=== PATIENT | male | born 1965 | race Caucasian/White ===

== ENCOUNTER 2021-04-20 16:21 | Inpatient (IN) | payer MEDICAID ==
[~2021-04-20] VITALS: Ht 162.6 cm; Wt 55.3 kg
[2021-04-20 18:53] LABS: CHLORIDE 109 mEq/L (98-107)
[2021-04-20 18:57] LABS: ETHANOL BLOOD < 10 mg/dL
[2021-04-20] MEDS ORDERED: POTASSIUM-SODIUM PHOSPHATE POWDER PACKET PO ONE (19:30)
[2021-04-20] MEDS ORDERED: POTASSIUM CHLORIDE INJ 40 MEQ in DEXT 5% WATER 250 ML IV ONE (19:30)
[2021-04-20 20:00] LABS: HEMATOCRIT. 22.6 % (42.0-52.0); HEMOGLOBIN. 7.6 g/dL (14.0-18.0); MEAN CORPUSCULAR HEMOGLOBIN 31.3 pg (28.0-32.0); MEAN CORPUSCULAR VOLUME 93.1 fL (80.0-94.0); MEAN PLATELET VOLUME 9.2 fl (7.4-10.4); RED BLOOD CELL COUNT 2.43 mill/uL (4.7-6.1); RED CELL DISTRIBUTION WIDTH 29.4 % (11.6-14.6)
[2021-04-20 20:28] LABS: PLATELET 30 x1000/uL (130-400)
[2021-04-20 21:27] LABS: NUCLEATED RED BLOOD CELLS 1 /100 WBC; PLATELET ESTIMATE MARKEDLY DECREASED
[2021-04-20] MEDS ORDERED: PANTOPRAZOLE SODIUM 40 MG/VIAL IV STA (21:45)
[2021-04-20] MEDS ORDERED: PANTOPRAZOLE 80 MG in SODIUM CHLORIDE 0.9% 100 ML IV STA (21:45)
[2021-04-20] MEDS ORDERED: LORAZEPAM 2MG/ML CPJ IV ONE (23:00)
[2021-04-20] MEDS ORDERED: DIPHENHYDRAMINE 50MG/ML VIAL IV ONE (23:00)
[2021-04-20] MEDS ORDERED: HALOPERIDOL LACTATE 5MG/ML VIAL IM ONE (23:00)
[2021-04-21 05:08] LABS: PARTIAL THROMBOPLASTIN TIME 30.4 sec (23.4-31.0); PROTHROMBIN TIME 10.9 sec (9.6-11.0)
[2021-04-21] MEDS ORDERED: ONDANSETRON HCL 4MG/2ML INJ IV PRN (11:30)
[2021-04-21 13:00] VITALS: BP 138/78
[2021-04-21] MEDS ORDERED: PANTOPRAZOLE 40MG DR TABLET PO NR (13:45)
[2021-04-21] MEDS: DEXT 5%/0.9% NACL 1,000 ML IV SCH (14:08)
[2021-04-21 16:00] VITALS: BP 139/95
[2021-04-21 16:37] LABS: CHLORIDE 111 mEq/L (98-107)
[2021-04-21 16:44] LABS: PHOSPHORUS 2.2 mg/dL (2.5-4.9)
[2021-04-21] MEDS ORDERED: POTASSIUM CHLORIDE 20MEQ TABLET SR PO NR (17:50)
[2021-04-21 20:00] VITALS: BP 143/85
[2021-04-21] MEDS ORDERED: POTASSIUM CHLORIDE 20MEQ TABLET SR PO SCH (22:00)
[2021-04-22] VITALS: BP 136/83
[2021-04-22] MEDS: DEXT 5%/0.9% NACL 1,000 ML IV SCH ×2 (01:12→13:28)
[2021-04-22] MEDS ORDERED: HYDROCODONE/ACETAMINOPHEN 5/325MG TABLET PO PRN (02:45)
[2021-04-22] MEDS ORDERED: NALOXONE HCL 0.4MG/ML VIAL IV PRN (03:00)
[2021-04-22 04:00] VITALS: BP 145/103
[2021-04-22] MEDS: PANTOPRAZOLE 40MG DR TABLET PO SCH (05:41)
[2021-04-22 08:00] VITALS: BP 135/87
[2021-04-22 08:43] LABS: HEMATOCRIT. 28.7 % (42.0-52.0); HEMOGLOBIN. 9.5 g/dL (14.0-18.0); MEAN CORPUSCULAR HEMOGLOBIN 30.7 pg (28.0-32.0); MEAN CORPUSCULAR VOLUME 93.1 fL (80.0-94.0); MEAN PLATELET VOLUME 10.5 fl (7.4-10.4); RED BLOOD CELL COUNT 3.08 mill/uL (4.7-6.1); RED CELL DISTRIBUTION WIDTH 29.3 % (11.6-14.6)
[2021-04-22] MEDS: ACETAMINOPHEN 325MG TABLET PO PRN ×2 (08:43→16:28)
[2021-04-22 08:49] LABS: CHLORIDE 107 mEq/L (98-107); PLATELET 17 x1000/uL (130-400)
[2021-04-22 08:56] LABS: LDL CHOLESTEROL 118 mg/dL (5-100)
[2021-04-22 08:57] LABS: HDL CHOLESTEROL 60 mg/dL (40-59)
[2021-04-22] MEDS ORDERED: POTASSIUM CHLORIDE 20MEQ TABLET SR PO NR (09:45)
[2021-04-22 11:22] LABS: PLATELET ESTIMATE MARKEDLY DECREASED
[2021-04-22 12:00] VITALS: BP 112/63
[2021-04-22 16:00] VITALS: BP 155/72
[2021-04-22] MEDS ORDERED: SODIUM CHLORIDE 0.9% 250 ML IV ONE (17:00)
[2021-04-22 20:00] VITALS: BP 97/52
[2021-04-22 21:46] LABS: HEPATITIS B SURFACE ANTIGEN NEGATIVE
[2021-04-23] VITALS (45 sets, daily range): BP systolic 60–145; BP diastolic 39–122
[2021-04-23] MEDS: CEFEPIME 1,000 MG in DEXTROSE 5% WATER 50 ML IV SCH ×4 (00:12→22:41)
[2021-04-23] MEDS: ACETAMINOPHEN 325MG TABLET PO PRN ×2 (00:16→16:09)
[2021-04-23] MEDS: DEXT 5%/0.9% NACL 1,000 ML IV SCH ×2 (03:30→16:12)
[2021-04-23] MEDS: PANTOPRAZOLE 40MG DR TABLET PO SCH (06:44)
[2021-04-23 08:45] LABS: *AMPHETAMINES SCREEN URINE NEGATIVE (NEGATIVE); *BARBITURATES SCREEN URINE NEGATIVE (NEGATIVE); *BENZODIAZEPINES SCREEN URINE NEGATIVE (NEGATIVE); *COCAINE SCREEN URINE NEGATIVE (NEGATIVE); METHADONE URINE SCREEN NEGATIVE (NEGATIVE); OPIATES URINE SCREEN NEGATIVE (NEGATIVE); PHENCYCLIDINE URINE SCREEN NEGATIVE (NEGATIVE)
[2021-04-23 08:47] LABS: CANNABINOID URINE SCREEN NEGATIVE (NEGATIVE)
[2021-04-23] MEDS ORDERED: METOPROLOL SUCCINATE 50MG ER TABLET PO SCH (09:00)
[2021-04-23 09:06] LABS: ABSOLUTE BASOPHILS 0.1 x10E3/uL (0.0-0.2); ABSOLUTE EOSINOPHILS 0.1 x10E3/uL (0.0-0.4); ABSOLUTE LYMPHOCYTES 0.7 x10E3/uL (0.7-3.1); ABSOLUTE MONOCYTES 0.4 x10E3/uL (0.1-0.9); ABSOLUTE NEUTROPHILS 0.9 x10E3/uL (1.4-7.0); BASOPHILS 3 % (Not Estab.); HEMATOLOGY COMMENT Note: (.); HEMOGLOBIN 9.4 g/dL (13.0-17.7); LYMPHOCYTES 31 % (Not Estab.); MEAN CORPUSCULAR HEMOGLOBIN 30.4 pg (26.6-33.0); MEAN CORPUSCULAR HGB CONC. 33.6 g/dL (31.5-35.7); MEAN CORPUSCULAR VOLUME 91 fL (79-97); MONOCYTES 18 % (Not Estab.); NEUTROPHILS 35 % (Not Estab.); NUCLEATED RBC 3 % (0 - 0); PLATELETS 13 x10E3/uL (150-450); RBC 3.09 x10E6/uL (4.14-5.80); WBC 2.4 x10E3/uL (3.4-10.8)
[2021-04-23] MEDS ORDERED: METOPROLOL TARTRATE 25MG TABLET PO SCH (09:30)
[2021-04-23 09:35] LABS: HEMATOCRIT. 24.9 % (42.0-52.0); HEMOGLOBIN. 8.4 g/dL (14.0-18.0); MEAN CORPUSCULAR HEMOGLOBIN 31.9 pg (28.0-32.0); MEAN CORPUSCULAR VOLUME 94.1 fL (80.0-94.0); RED BLOOD CELL COUNT 2.64 mill/uL (4.7-6.1); RED CELL DISTRIBUTION WIDTH 29.2 % (11.6-14.6)
[2021-04-23 10:08] LABS: % CD 3 POS. LYMPHOCYTES 66.1 % (57.5-86.2); % CD 4 POS. LYMPHOCYTES 2.8 % (30.8-58.5); ABSOLUTE CD 3 463 /uL (622-2402); ABSOLUTE CD 4 HELPER 20 /uL (359-1519); ABSOLUTE CD 8 SUPPRESSOR 434 /uL (109-897); CD4/CD8 RATIO 0.05 (0.92-3.72)
[2021-04-23 10:47] LABS: PLATELET 8 x1000/uL (130-400)
[2021-04-23] MEDS ORDERED: ACETAMINOPHEN 325MG TABLET PO SCH (11:00)
[2021-04-23 11:12] LABS: BG BASE EXCESS -6.4 mmol/L (-2.0-2.0); BG CARBOXYHEMOGLOBIN 0.3 % (0.5-1.5); BG DEOXYHEMOGLOBIN 10.4 % (0.0-5.0); BG HCO3 ACT 15.7 mmol/L (22.0-26.0); BG METHEMOGLOBIN 0.3 % (0.0-1.5); BG OXYGEN SATURATION 89.5 % (92.0-98.5); BG PCO2 20.5 mmHg (35.0-45.0); BG PH 7.501 (7.350-7.450); BG PO2 56.5 mmHg (75.0-100.0); BG SAMPLE SITE LEFT RADIAL; BG TOTAL HEMOGLOBIN 8.2 g/dL (12.0-18.0); BG VENT MODE ROOM AIR
[2021-04-23 11:21] LABS: PLATELET ESTIMATE MARKEDLY DECREASED
[2021-04-23] MEDS ORDERED: DIPHENHYDRAMINE 25MG CAPSULE PO SCH (12:00)
[2021-04-23] MEDS ORDERED: SODIUM CHLORIDE 0.9% 500 ML IV ONE (13:30)
[2021-04-23] MEDS ORDERED: NOREPINEPHRINE 8MG/250ML PMX 250 ML IV SCH (13:45)
[2021-04-23] MEDS ORDERED: DOPAMINE 400MG/250ML PREMIX 250 ML IV PRN (15:15)
[2021-04-23] MEDS ORDERED: IPRATROPIUM/ALBUTEROL 0.5-3(2.5)MG/3ML NEB HHN PRN (18:00)
[2021-04-23] MEDS ORDERED: IPRATROPIUM/ALBUTEROL 0.5-3(2.5)MG/3ML NEB HHN SCH (18:00)
[2021-04-23] MEDS: PHENYLEPHRINE 100 MG in DEXT 5% WATER 240 ML IV PRN (18:50)
[2021-04-23] MEDS: NOREPINEPHRINE 8 MG in DEXTROSE 5% WATER 250 ML IV PRN (22:41)
[2021-04-24] VITALS (97 sets, daily range): BP systolic 65–186; BP diastolic 31–94
[2021-04-24] MEDS: AZITHROMYCIN 500 MG in DEXT 5% WATER 250 ML IV SCH ×2 (00:50→23:54)
[2021-04-24] MEDS ORDERED: VANCOMYCIN 1 G PREMIX 200 ML IV SCH (01:00)
[2021-04-24] MEDS: PHENYLEPHRINE 100 MG in DEXT 5% WATER 240 ML IV PRN ×2 (05:19→15:59)
[2021-04-24] MEDS: DEXT 5%/0.9% NACL 1,000 ML IV SCH ×2 (05:20→13:49)
[2021-04-24 06:05] LABS: HEMATOCRIT. 23.6 % (42.0-52.0); HEMOGLOBIN. 7.9 g/dL (14.0-18.0); MEAN CORPUSCULAR HEMOGLOBIN 31.2 pg (28.0-32.0); MEAN CORPUSCULAR VOLUME 93.6 fL (80.0-94.0); MEAN PLATELET VOLUME 11.2 fl (7.4-10.4); RED BLOOD CELL COUNT 2.52 mill/uL (4.7-6.1)
[2021-04-24] MEDS: CEFEPIME 1,000 MG in DEXTROSE 5% WATER 50 ML IV SCH ×3 (06:42→22:04)
[2021-04-24] MEDS: ATOVAQUONE 750MG/5ML ORAL SYRINGE PO SCH ×2 (06:42→16:00)
[2021-04-24] MEDS: PANTOPRAZOLE 40MG DR TABLET PO SCH (06:42)
[2021-04-24 08:04] LABS: PLATELET 8 x1000/uL (130-400)
[2021-04-24] MEDS ORDERED: LIDOCAINE HCL 1% 30ML VIAL (10MG/ML) ONE (08:22)
[2021-04-24] MEDS ORDERED: POTASSIUM CHLORIDE 20MEQ TABLET SR PO SCH (08:45)
[2021-04-24 10:58] LABS: D-DIMER 4.63 mg/L FEU (<0.50); INR 1.8; PROTHROMBIN TIME 18.2 sec (9.6-11.0)
[2021-04-24] MEDS ORDERED: LORAZEPAM 2MG/ML CPJ IV SCH (11:00)
[2021-04-24 13:08] LABS: HIV 1 ABS Positive (Negative); HIV 2 ABS Negative (Negative); HIV SCREEN 4G Reactive (Non Reactive); INTERPRETATION HIV-1 Positive (.)
[2021-04-24 13:12] LABS: BG BASE EXCESS -5.2 mmol/L (-2.0-2.0); BG CARBOXYHEMOGLOBIN 0.3 % (0.5-1.5); BG DEOXYHEMOGLOBIN 1.1 % (0.0-5.0); BG FRACTION INSPIRED OXYGEN 50; BG HCO3 ACT 17.7 mmol/L (22.0-26.0); BG METHEMOGLOBIN 0.3 % (0.0-1.5); BG OXYGEN SATURATION 98.9 % (92.0-98.5); BG OXYHEMOGLOBIN 98.3 % (94.0-97.0); BG PCO2 25.3 mmHg (35.0-45.0); BG PH 7.463 (7.350-7.450); BG PO2 203.1 mmHg (75.0-100.0); BG SAMPLE SITE RIGHT RADIAL; BG TOTAL HEMOGLOBIN 7.9 g/dL (12.0-18.0); BG TOTAL RESPIRATORY RATE 32 b/min; BG VENT MODE MASK - BIPAP
[2021-04-24] MEDS: NOREPINEPHRINE 8 MG in DEXTROSE 5% WATER 250 ML IV PRN (15:59)
[2021-04-24] MEDS: IPRATROPIUM/ALBUTEROL 0.5-3(2.5)MG/3ML NEB HHN SCH ×2 (17:05→20:21)
[2021-04-24 17:36] LABS: PLATELET ESTIMATE MARKEDLY DECREASED
[2021-04-24] MEDS: LORAZEPAM 2MG/ML CPJ IV PRN ×2 (18:41→23:55)
[2021-04-24 18:55] LABS: CLARITY URINE CLOUDY (CLEAR); COLOR URINE DARK YELLOW (YELLOW); KETONES URINE TRACE (NEGATIVE); LEUKOCYTE ESTERASE URINE TRACE (NEGATIVE); NITRITE URINE NEGATIVE (NEGATIVE); OCCULT BLOOD URINE TRACE (NEGATIVE); PH URINE 5.5 (4.5-8.0); PROTEIN URINE 1+ (NEGATIVE); SPECIFIC GRAVITY URINE 1.019 (1.005-1.030)
[2021-04-24] MEDS ORDERED: VANCOMYCIN 750 MG PREMIX 150 ML IV SCH (21:00)
[2021-04-25] VITALS (98 sets, daily range): BP systolic 70–139; BP diastolic 34–104
[2021-04-25 01:57] LABS: INR 1.6; PROTHROMBIN TIME 16.7 sec (9.6-11.0)
[2021-04-25] MEDS: IPRATROPIUM/ALBUTEROL 0.5-3(2.5)MG/3ML NEB HHN SCH ×2 (02:15→08:26)
[2021-04-25] MEDS: PHENYLEPHRINE 100 MG in DEXT 5% WATER 240 ML IV PRN ×3 (02:39→23:37)
[2021-04-25] MEDS: ATOVAQUONE 750MG/5ML ORAL SYRINGE PO SCH ×3 (06:29→17:58)
[2021-04-25] MEDS: PANTOPRAZOLE 40MG DR TABLET PO SCH ×2 (06:29→06:30)
[2021-04-25] MEDS: CEFEPIME 1,000 MG in DEXTROSE 5% WATER 50 ML IV SCH ×3 (06:29→21:02)
[2021-04-25] MEDS: DEXT 5%/0.9% NACL 1,000 ML IV SCH ×2 (10:31→21:50)
[2021-04-25] MEDS: IPRATROPIUM BROMIDE (0.02%) 0.5MG/2.5ML NEB HHN SCH ×2 (14:04→21:02)
[2021-04-25 21:30] LABS: CHLORIDE 113 mEq/L (98-107)
[2021-04-25] MEDS: DEXT 10% WATER 1,000 ML IV SCH (22:26)
[2021-04-25 22:58] LABS: HEMATOCRIT. 21.7 % (42.0-52.0); MEAN CORPUSCULAR HEMOGLOBIN 30.2 pg (28.0-32.0); MEAN CORPUSCULAR VOLUME 95.5 fL (80.0-94.0); MEAN PLATELET VOLUME 12.3 fl (7.4-10.4); RED BLOOD CELL COUNT 2.27 mill/uL (4.7-6.1); RED CELL DISTRIBUTION WIDTH 30.1 % (11.6-14.6)
[2021-04-25 23:05] LABS: HEMOGLOBIN. 6.9 g/dL (14.0-18.0); PLATELET 11 x1000/uL (130-400)
[2021-04-25 23:11] LABS: INR 1.7; PROTHROMBIN TIME 17.4 sec (9.6-11.0)
[2021-04-25 23:19] LABS: PLATELET ESTIMATE MARKEDLY DECREASED
[2021-04-25] MEDS: AZITHROMYCIN 500 MG in DEXT 5% WATER 250 ML IV SCH (23:35)
[2021-04-26] VITALS (111 sets, daily range): BP systolic 59–158; BP diastolic 20–118
[2021-04-26] MEDS: NOREPINEPHRINE 8 MG in DEXTROSE 5% WATER 250 ML IV PRN ×4 (01:00→20:30)
[2021-04-26] MEDS: IPRATROPIUM BROMIDE (0.02%) 0.5MG/2.5ML NEB HHN SCH ×4 (01:37→21:58)
[2021-04-26] MEDS: CEFEPIME 1,000 MG in DEXTROSE 5% WATER 50 ML IV SCH ×3 (05:20→21:12)
[2021-04-26] MEDS: PANTOPRAZOLE 40MG DR TABLET PO SCH ×2 (06:30→07:05)
[2021-04-26] MEDS: ATOVAQUONE 750MG/5ML ORAL SYRINGE PO SCH ×2 (07:00→17:00)
[2021-04-26 07:03] LABS: CHLORIDE 110 mEq/L (98-107)
[2021-04-26] MEDS ORDERED: POTASSIUM CHLORIDE INJ 40 MEQ in DEXT 5% WATER 250 ML IV SCH (09:00)
[2021-04-26 09:01] LABS: BG BASE EXCESS -7.3 mmol/L (-2.0-2.0); BG CARBOXYHEMOGLOBIN 0.8 % (0.5-1.5); BG DEOXYHEMOGLOBIN 1.5 % (0.0-5.0); BG METHEMOGLOBIN 0.3 % (0.0-1.5); BG OXYGEN SATURATION 98.5 % (92.0-98.5); BG OXYHEMOGLOBIN 97.4 % (94.0-97.0); BG PCO2 61.3 mmHg (35.0-45.0); BG PH 7.153 (7.350-7.450); BG PO2 139.9 mmHg (75.0-100.0); BG SAMPLE SITE RIGHT BRACHIAL; BG TOTAL HEMOGLOBIN 6.6 g/dL (12.0-18.0); BG VENT MODE MASK - NRB
[2021-04-26] MEDS: KCL 20MEQ/100ML PREMIX 100 ML IV SCH ×2 (09:19→11:29)
[2021-04-26] MEDS: PHENYLEPHRINE 100 MG in DEXT 5% WATER 240 ML IV PRN ×2 (09:50→19:41)
[2021-04-26] MEDS ORDERED: MAGNESIUM 2 G PREMIX 50 ML IV NR (11:00)
[2021-04-26 11:20] LABS: BG BASE EXCESS -7.9 mmol/L (-2.0-2.0); BG CARBOXYHEMOGLOBIN 0.8 % (0.5-1.5); BG DEOXYHEMOGLOBIN 15.7 % (0.0-5.0); BG HCO3 ACT 19.9 mmol/L (22.0-26.0); BG METHEMOGLOBIN 0.2 % (0.0-1.5); BG OXYGEN SATURATION 84.1 % (92.0-98.5); BG OXYHEMOGLOBIN 83.3 % (94.0-97.0); BG PCO2 53.9 mmHg (35.0-45.0); BG PH 7.185 (7.350-7.450); BG SAMPLE SITE RIGHT BRACHIAL; BG TOTAL HEMOGLOBIN 7.4 g/dL (12.0-18.0); BG VENT MODE MASK - BIPAP
[2021-04-26] MEDS ORDERED: SODIUM BICARBONATE 8.4% 1 MEQ/ML 50ML SYR IV NR (12:30)
[2021-04-26] MEDS: DEXT 10% WATER 1,000 ML IV SCH (13:03)
[2021-04-26] MEDS ORDERED: ACETAMINOPHEN 650MG SUPP PR PRN (20:15)
[2021-04-26] MEDS ORDERED: DIPHENHYDRAMINE 50MG/ML VIAL IV NR (20:15)
[2021-04-26] MEDS: AZITHROMYCIN 500 MG in DEXT 5% WATER 250 ML IV SCH (23:11)
[2021-04-27] VITALS (89 sets, daily range): BP systolic 36–137; BP diastolic 18–110
[2021-04-27] MEDS: NOREPINEPHRINE 8 MG in DEXTROSE 5% WATER 250 ML IV PRN ×6 (00:38→13:43)
[2021-04-27] MEDS: DEXT 10% WATER 1,000 ML IV SCH ×2 (00:40→13:08)
[2021-04-27] MEDS: IPRATROPIUM BROMIDE (0.02%) 0.5MG/2.5ML NEB HHN SCH ×4 (01:40→20:32)
[2021-04-27 02:51] LABS: HEMATOCRIT. 27.1 % (42.0-52.0); HEMOGLOBIN. 9.1 g/dL (14.0-18.0); MEAN CORPUSCULAR HEMOGLOBIN 30.5 pg (28.0-32.0); MEAN CORPUSCULAR VOLUME 90.8 fL (80.0-94.0); MEAN PLATELET VOLUME 11.7 fl (7.4-10.4); RED BLOOD CELL COUNT 2.98 mill/uL (4.7-6.1); RED CELL DISTRIBUTION WIDTH 21.4 % (11.6-14.6)
[2021-04-27] MEDS: PHENYLEPHRINE 100 MG in DEXT 5% WATER 240 ML IV PRN ×2 (05:19→15:12)
[2021-04-27] MEDS: CEFEPIME 1,000 MG in DEXTROSE 5% WATER 50 ML IV SCH (06:29)
[2021-04-27] MEDS: ATOVAQUONE 750MG/5ML ORAL SYRINGE PO SCH ×2 (07:00→17:00)
[2021-04-27] MEDS ORDERED: ATROPINE SULFATE 1MG/10ML SYR ONE (08:07)
[2021-04-27] MEDS ORDERED: ETOMIDATE 2MG/ML 10ML VIAL IV ONE (08:07)
[2021-04-27] MEDS ORDERED: SUCCINYLCHOLINE CHLORIDE 200MG/10ML IV ONE (08:07)
[2021-04-27] MEDS: PANTOPRAZOLE SODIUM 40 MG/VIAL IV SCH (09:22)
[2021-04-27 10:09] LABS: BG BASE EXCESS -8.2 mmol/L (-2.0-2.0); BG CARBOXYHEMOGLOBIN 0.2 % (0.5-1.5); BG DEOXYHEMOGLOBIN 2.2 % (0.0-5.0); BG FRACTION INSPIRED OXYGEN 60; BG HCO3 ACT 19.5 mmol/L (22.0-26.0); BG METHEMOGLOBIN 0.5 % (0.0-1.5); BG OXYGEN SATURATION 97.8 % (92.0-98.5); BG OXYHEMOGLOBIN 97.1 % (94.0-97.0); BG PCO2 50.4 mmHg (35.0-45.0); BG PH 7.206 (7.350-7.450); BG PO2 126.2 mmHg (75.0-100.0); BG SAMPLE SITE RIGHT RADIAL; BG TOTAL HEMOGLOBIN 9.6 g/dL (12.0-18.0); BG VENT MODE MASK - BIPAP
[2021-04-27 10:37] LABS: PLATELET ESTIMATE MARKEDLY DECREASED
[2021-04-27 10:38] LABS: PLATELET 5 x1000/uL (130-400)
[2021-04-27] MEDS ORDERED: SODIUM BICARBONATE 8.4% 1 MEQ/ML 50ML SYR IV NR ×2 (12:30→19:00)
[2021-04-27] MEDS: NOREPINEPHRINE 32 MG in DEXT 5% WATER 218 ML IV PRN (17:06)
[2021-04-27] MEDS ORDERED: CEFEPIME 1,000 MG in DEXTROSE 5% WATER 50 ML IV SCH (18:00)
[2021-04-27 18:46] LABS: BG BASE EXCESS -8.5 mmol/L (-2.0-2.0); BG CARBOXYHEMOGLOBIN 1.4 % (0.5-1.5); BG FRACTION INSPIRED OXYGEN 50; BG HCO3 ACT 20.3 mmol/L (22.0-26.0); BG METHEMOGLOBIN 0.3 % (0.0-1.5); BG OXYGEN SATURATION 87.8 % (92.0-98.5); BG OXYHEMOGLOBIN 86.3 % (94.0-97.0); BG PCO2 60.4 mmHg (35.0-45.0); BG PH 7.144 (7.350-7.450); BG PO2 62.6 mmHg (75.0-100.0); BG SAMPLE SITE RIGHT BRACHIAL; BG TOTAL HEMOGLOBIN 8.9 g/dL (12.0-18.0); BG VENT MODE PRVC
[2021-04-27] MEDS: AZITHROMYCIN 500 MG in DEXT 5% WATER 250 ML IV SCH (23:32)
[2021-04-27] MEDS: CEFAZOLIN 2,000 MG in DEXT 5% WATER 100 ML IV SCH (23:32)
[2021-04-28] VITALS (103 sets, daily range): BP systolic 60–144; BP diastolic 17–101
[2021-04-28] MEDS: DEXT 10% WATER 1,000 ML IV SCH ×2 (02:13→16:33)
[2021-04-28] MEDS: PHENYLEPHRINE 100 MG in DEXT 5% WATER 240 ML IV PRN ×3 (02:13→18:57)
[2021-04-28] MEDS: IPRATROPIUM BROMIDE (0.02%) 0.5MG/2.5ML NEB HHN SCH ×4 (02:22→20:36)
[2021-04-28 05:15] LABS: HEMATOCRIT. 21.5 % (42.0-52.0); HEMOGLOBIN. 7.4 g/dL (14.0-18.0); MEAN CORPUSCULAR HEMOGLOBIN 30.9 pg (28.0-32.0); MEAN CORPUSCULAR VOLUME 89.2 fL (80.0-94.0); MEAN PLATELET VOLUME 10.9 fl (7.4-10.4); RED BLOOD CELL COUNT 2.41 mill/uL (4.7-6.1); RED CELL DISTRIBUTION WIDTH 21.2 % (11.6-14.6)
[2021-04-28 05:46] LABS: BG BASE EXCESS -6.6 mmol/L (-2.0-2.0); BG CARBOXYHEMOGLOBIN 1.9 % (0.5-1.5); BG DEOXYHEMOGLOBIN 16.4 % (0.0-5.0); BG FRACTION INSPIRED OXYGEN 50; BG HCO3 ACT 21.1 mmol/L (22.0-26.0); BG METHEMOGLOBIN 0.2 % (0.0-1.5); BG OXYGEN SATURATION 83.2 % (92.0-98.5); BG OXYHEMOGLOBIN 81.5 % (94.0-97.0); BG PCO2 54.2 mmHg (35.0-45.0); BG PH 7.208 (7.350-7.450); BG PO2 53.8 mmHg (75.0-100.0); BG SAMPLE SITE LEFT RADIAL; BG TOTAL HEMOGLOBIN 8.1 g/dL (12.0-18.0); BG VENT MODE VENT - APRV
[2021-04-28] MEDS: ATOVAQUONE 750MG/5ML ORAL SYRINGE PO SCH ×2 (06:22→16:35)
[2021-04-28] MEDS: NOREPINEPHRINE 32 MG in DEXT 5% WATER 218 ML IV PRN ×3 (06:35→23:05)
[2021-04-28] MEDS: VASOPRESSIN 20 UNIT in SODIUM CHLORIDE 0.9% 99 ML IV PRN ×3 (06:37→23:04)
[2021-04-28] MEDS: PANTOPRAZOLE SODIUM 40 MG/VIAL IV SCH (08:54)
[2021-04-28] MEDS: CEFAZOLIN 2,000 MG in DEXT 5% WATER 100 ML IV SCH ×2 (10:24→23:05)
[2021-04-28 11:51] LABS: BG BASE EXCESS -4.1 mmol/L (-2.0-2.0); BG CARBOXYHEMOGLOBIN 0.8 % (0.5-1.5); BG DEOXYHEMOGLOBIN 5.2 % (0.0-5.0); BG FRACTION INSPIRED OXYGEN 65; BG HCO3 ACT 22.4 mmol/L (22.0-26.0); BG METHEMOGLOBIN 0.2 % (0.0-1.5); BG OXYGEN SATURATION 94.7 % (92.0-98.5); BG OXYHEMOGLOBIN 93.8 % (94.0-97.0); BG PH 7.286 (7.350-7.450); BG PO2 81.7 mmHg (75.0-100.0); BG SAMPLE SITE RIGHT BRACHIAL; BG TOTAL HEMOGLOBIN 8.3 g/dL (12.0-18.0); BG VENT MODE PRVC
[2021-04-28 12:22] LABS: NUCLEATED RED BLOOD CELLS 1 /100 WBC; PLATELET ESTIMATE MARKEDLY DECREASED
[2021-04-28 12:23] LABS: PLATELET 6 x1000/uL (130-400)
[2021-04-28] MEDS: KCL 20MEQ/100ML PREMIX 100 ML IV SCH ×2 (12:55→14:49)
[2021-04-28] MEDS ORDERED: MAGNESIUM 2 G PREMIX 50 ML IV SCH (13:00)
[2021-04-28] MEDS ORDERED: PROPOFOL 10MG/ML 100ML 100 ML IV PRN (15:00)
[2021-04-29] VITALS: BP 57/35
[2021-04-29] MEDS ORDERED: DOBUTAMINE 500MG PREMIX 250 ML IV PRN
[2021-04-29 00:29] VITALS: BP 74/53
[2021-04-29] MEDS: IPRATROPIUM BROMIDE (0.02%) 0.5MG/2.5ML NEB HHN SCH (00:31)
[2021-04-29 00:45] VITALS: BP 75/31
[2021-04-29] MEDS ORDERED: EPINEPHRINE 0.1MG/ML (1:10,000) 10ML SYR ONE ×2 (08:32→14:50)
[2021-04-29] MEDS ORDERED: DEXTROSE 50% WATER 50ML SYRINGE IV ONE ×2 (08:32→14:50)
[2021-04-29] MEDS ORDERED: ATROPINE SULFATE 1MG/10ML SYR ONE (08:32)
[2021-04-29] MEDS ORDERED: SODIUM BICARBONATE 8.4% 1 MEQ/ML 50ML SYR IV ONE ×2 (08:32→14:50)
== END 2021-04-29 01:00 | DRG 890 ==
LOC: ER 16:21 → MICUSO 22:40 → 7EST 04-21 10:53 → 5EST 04-23 12:16 → MICUSO 04-23 15:00 → MICUNO 04-23 18:39 → MICUSO 04-24 02:20
PROVIDERS: ADMIT Family Medicine; ATTEND Family Medicine
PROC: 06HY33Z Insertion of Infusion Device into Lower Vein, Percutaneous Approach (ICD-10-PCS; principal; 2021-04-24)
PROC: B54CZZA Ultrasonography of Left Lower Extremity Veins, Guidance (ICD-10-PCS; 2021-04-24)
PROC: 5A09357 Assistance with Respiratory Ventilation, Less than 24 Consecutive Hours, Continuous Positive Airway Pressure (ICD-10-PCS; 2021-04-24)
PROC: 30233R1 Transfusion of Nonautologous Platelets into Peripheral Vein, Percutaneous Approach (ICD-10-PCS; 2021-04-25)
PROC: 30233N1 Transfusion of Nonautologous Red Blood Cells into Peripheral Vein, Percutaneous Approach (ICD-10-PCS; 2021-04-26)
PROC: 5A09357 Assistance with Respiratory Ventilation, Less than 24 Consecutive Hours, Continuous Positive Airway Pressure (ICD-10-PCS; 2021-04-26)
PROC: 5A1945Z Respiratory Ventilation, 24-96 Consecutive Hours (ICD-10-PCS; 2021-04-27)
PROC: 5A12012 Performance of Cardiac Output, Single, Manual (ICD-10-PCS; 2021-04-27)
PROC: 0BH17EZ Insertion of Endotracheal Airway into Trachea, Via Natural or Artificial Opening (ICD-10-PCS; 2021-04-27)
DX: A41.01 Sepsis due to Methicillin susceptible Staphylococcus aureus (principal); B20 Human immunodeficiency virus [HIV] disease; J96.01 Acute respiratory failure with hypoxia; N17.0 Acute kidney failure with tubular necrosis; R65.21 Severe sepsis with septic shock; D68.9 Coagulation defect, unspecified; E43 Unspecified severe protein-calorie malnutrition; E87.4 Mixed disorder of acid-base balance; L89.153 Pressure ulcer of sacral region, stage 3; K92.2 Gastrointestinal hemorrhage, unspecified; J68.0 Bronchitis and pneumonitis due to chemicals, gases, fumes and vapors; E11.9 Type 2 diabetes mellitus without complications; E87.6 Hypokalemia; F19.90 Other psychoactive substance use, unspecified, uncomplicated; R74.01 Elevation of levels of liver transaminase levels; F15.10 Other stimulant abuse, uncomplicated; I46.9 Cardiac arrest, cause unspecified; D70.9 Neutropenia, unspecified; K64.9 Unspecified hemorrhoids; Z20.822 Contact with and (suspected) exposure to COVID-19; E78.5 Hyperlipidemia, unspecified; Z59.00 Homelessness unspecified
CPT/HCPCS: 36415; 36600; 71045; 71250; 74176; 76770; 80048; 80053; 80061; 80202; 80305; 80320; 81003; 82040; 82105; 82375; 82805; 82962; 83735; 84100; 84134; 84145; 85018; 85025; 85049; 85362; 85379; 85384; 86359; 86360; 86701; 86702; 86703; 86705; 86709; 86803; 86850; 86900; 86920; 86945; 87070; 87077; 87186; 87340; 87389; 87426; 93306; 94002; 94003; 94640; 94660; 99285; A6261; C1893; C9113; J0330; J0456; J0461; J0690; J0692; J1200; J1265; J1630; J2060; J2370; J2405; J2704; J3370; J3475; J3480; J3490; J7040; J7042; J7050; J7060; P9016; P9034; Q0163; U0003; U0005; A4315; G0480